=== PATIENT | female | born 1990 | race Caucasian/White ===

== ENCOUNTER → 2024-05-14 11:10 | Outpatient (REF) | payer BC, SELFPAY | LOC: MRI 3T 11:10 | PROVIDERS: ATTENDING PHYSICIAN Specialist; FAMILY PHYSICIAN Family Medicine | DX: R20.2 Paresthesia of skin (principal); M54.2 Cervicalgia | CPT/HCPCS: 72156; A9575 ==

== ENCOUNTER → 2024-07-14 20:10 | Outpatient (REF) | payer BC, SELFPAY | LOC: MRI 20:10 | PROVIDERS: ATTENDING PHYSICIAN Specialist; FAMILY PHYSICIAN Family Medicine | DX: R56.9 Unspecified convulsions (principal); R20.0 Anesthesia of skin; M54.2 Cervicalgia | CPT/HCPCS: 70553; A9575 ==